=== PATIENT | female | born 1990 | race Two or more races ===

== ENCOUNTER 2024-01-07 09:13 | Outpatient (CLI) | payer OTHER ==
[~2024-01-07 09:13] MED LIST: AUGMENTIN125 MG/5 M; CLARITIN10 M2; PRENA1 CHEW TA1.4 MG
== END 2024-01-07 09:14 | disposition home or self-care (01) ==
LOC: PRENATAL 09:13
PROVIDERS: ATTEND Obstetrics & Gynecology Maternal & Fetal Medicine
DX: O26.849 Uterine size-date discrepancy, unspecified trimester (principal); O36.8199 Decreased fetal movements, unspecified trimester, other fetus; Z3A.32 32 weeks gestation of pregnancy

== ENCOUNTER 2024-01-27 12:55 | Inpatient (IN) | payer OTHER ==
[~2024-01-27] VITALS: Ht 160 cm; Wt 77.1 kg
[2024-02-04] MEDS ORDERED: PROBIOTIC250 MG PO (06:08)
[2024-02-04] MEDS ORDERED: BETAMETHASONE ACETATE,SOD PHOS 30 MG/5 ML ML ONE (06:28)
[2024-02-04] MEDS ORDERED: RINGERS SOLUTION,LACTATED 1,000 ML IV ONE (06:30)
[2024-02-04] MEDS ORDERED: BETAMETHASONE ACETATE,SOD PHOS 30 MG/5 ML ML IM ONE (06:30)
[2024-02-04 06:55] LABS: PH,URINE 7.5 (5.0-8.0); URINE APPEARANCE Clear; URINE BILIRRUBIN Negative (NEGATIVE); URINE BLOOD Negative; URINE COLOR Yellow; URINE GLUCOSE Negative (NEGATIVE); URINE LEUKOCYTE Negative; URINE NITRATE Negative; URINE PROTEIN Negative (NEGATIVE); URINE UROBILINOGEN 0.2 E.U./dl
[2024-02-04 06:58] LABS: URINE BACTERIA 120.9 uL (0.0-1933); URINE EPITHELIAL CELLS 5.3 uL (0.0-38.8); URINE WBC 3.8 uL (0.0-23.2)
[2024-02-04 07:14] LABS: INR < 0.93; PARTIAL THROMBOPLASTIN TIME 32.9 SECONDS (22.0-34.0); PROTHROMBIN TIME 9.3 SECONDS (9.0-11.5)
[2024-02-04 07:16] LABS: HEMATOCRIT 37.4 % (36.0-45.00); HEMOGLOBIN 12.4 g/dL (12.0-15.00); MEAN CELL VOLUME 82.7 fL (80.00-100.00); MEAN CORPUSCULAR HEMOGLOBIN 27.5 pg (27.00-32.0); MEAN CORPUSCULAR HGB CONC 33.3 g/dl (32.0-36.0); PLATELET COUNT 149 K/uL (150-450); RED BLOOD COUNT 4.53 M/uL (4.00-6.00)
[2024-02-04 09:15] LABS: URINE RBC 0.7 uL (0.0-20.8)
[2024-02-04] MEDS ORDERED: OXYTOCIN 20 UNITS/500ML RL PIGGYBAG IV ONE (10:50)
[2024-02-04] MEDS ORDERED: MORPHINE SULFATE 4 MG/ML VIAL IV ONE (11:00)
[2024-02-04] MEDS ORDERED: OXYTOCIN 500 ML IV SCH (11:00)
[2024-02-04] MEDS ORDERED: ERYTHROMYCIN BASE 1 GM TUBE OP ONE ×2 (12:14→13:00)
[2024-02-04] MEDS ORDERED: OXYTOCIN 20 UNITS/1000ML RL PIGGYBAG IV ONE (12:15)
[2024-02-04] MEDS ORDERED: LIDOCAINE HCL 1% 10ML VIAL ONE (12:15)
[2024-02-04] MEDS ORDERED: CHLORHEXIDINE GLUCONATE 120 ML BOTTLE TOP ONE ×2 (12:15→13:30)
[2024-02-04] MEDS ORDERED: IBUprofen 400 MG TABLET PO PRN (13:00)
[2024-02-04] MEDS ORDERED: OXYTOCIN 1,000 ML IV ONE (13:30)
[2024-02-04] MEDS ORDERED: LIDOCAINE HCL 1% 10ML VIAL IJ ONE (13:30)
[2024-02-04 14:16] LABS: ABG PH 7.298 (7.35-7.45); ABG PO2 27.2 mmHg (80-100); ABG pCO2 44.2 mmHg (35-45); BASE EXCESS -5.2 mmol/l; BICARBONATE 21.1 mmol/l (23-25); SaO2 41.7 %; Tco2 22.5 mmol/l; o2 21 %
[2024-02-04 16:55] LABS: HEMOGLOBIN 13.7 g/dL (12.0-15.00); MEAN CELL VOLUME 83.6 fL (80.00-100.00); MEAN CORPUSCULAR HEMOGLOBIN 27.9 pg (27.00-32.0); MEAN CORPUSCULAR HGB CONC 33.4 g/dl (32.0-36.0); PLATELET COUNT 163 K/uL (150-450); RED BLOOD COUNT 4.91 M/uL (4.00-6.00); RED CELL DISTRIBUTION WIDTH 14.6 % (11.5-14.5)
[2024-02-05] MEDS ORDERED: PNV,CALCIUM 72/IRON/FOLIC ACID 1 TAB TABLET PO SCH (09:00)
== END 2024-02-06 11:10 | disposition home or self-care (01) | DRG 807 ==
LOC: LDR 02-04 05:42 → OB/GYN 02-04 13:05
PROVIDERS: Obstetrics & Gynecology; ADMIT Specialist; ATTEND Specialist
PROC: 10E0XZZ Delivery of Products of Conception, External Approach (ICD-10-PCS; principal; 2024-02-04)
PROC: 0UQG7ZZ Repair Vagina, Via Natural or Artificial Opening (ICD-10-PCS; 2024-02-04)
PROC: 4A1HXCZ Monitoring of Products of Conception, Cardiac Rate, External Approach (ICD-10-PCS; 2024-02-04)
DX: O70.1 Second degree perineal laceration during delivery (principal); Z37.0 Single live birth; Z3A.36 36 weeks gestation of pregnancy; Z20.822 Contact with and (suspected) exposure to COVID-19